=== PATIENT | female | born 1955 | race Hispanic/Latino ===

== ENCOUNTER 2018-05-01 13:20 | Emergency (ER) | payer BC ==
--- NOTE | 2018-05-01 14:35 | RAD REPORT ---
EXAM DESCRIPTION: CT - Head Brain Wo Cont - 05/01/2018 2:25 pm CLINICAL HISTORY: HEADACHE COMPARISON: Head Brain Wo Cont dated 09/08/2016 TECHNIQUE: All CT scans are performed using dose optimization technique as appropriate and may inclu de automated exposure control or mA/KV adjustment according to patient size. FINDINGS: No intracranial hemorrhage, hydrocephalus or extra-axial fluid collection.No areas of brai n edema or evidence of midline shift. Extensive fluid with air-fluid level seen in the paranasal sinuses suggesting sinusitis. The calvariu m is intact. IMPRESSION: No acute intracranial abnormality. Multifocal air-fluid levels in the paranasal sinuses raise suspicion for acute sinusitis.
[2018-05-01] MEDS ORDERED: PROMETHAZINE 25 MG/ML VIAL ONE (14:59)
[2018-05-01] MEDS ORDERED: FENTANYL CITR 100 MCG/2 ML ONE (15:00)
[2018-05-01] MEDS ORDERED: NA CHLORIDE 0.9% 1,000 ML ONE (15:00)
[2018-05-01 15:36] LABS: Absolute Lymphocytes (CBC) 2.7 K/uL (0.7-4.9); Absolute Monocytes 0.8 K/uL (0.1-1.3); Absolute Neutrophil 6.1 K/uL (1.8-8.0); Basophils % 0.4 % (0-1.3); Eosinophils % 0.2 % (0-4.4); Hematocrit 35.8 % (36.0-45.0); Lymphocytes % 27.9 % (15.3-44.8); MPV 9.3 fL (7.6-11.3); Monocytes % 8.5 % (3.3-12.3); RBC Red Blood Cell Count 4.02 M/uL (3.86-4.86)
[2018-05-01 15:49] LABS: BUN Blood Urea Nitrogen 16 mg/dL (7-18); Bicarbonate 24 mmol/L (21-32); Glucose Level 137 mg/dL (74-106); Potassium 3.5 mmol/L (3.5-5.1); Sodium Level 139 mmol/L (136-145)
--- NOTE | 2018-05-01 16:19 | ER ---
Nurse's Notes [facility] Name: Rosey Baum Age: 62 yrs Sex: Female : 1955 Arrival Date: 05/01/2018 Time: 13:22 Bed 15 Private MD: Diagnosis: Acute sinusitis;Headache Presentation: 05/01 13:32 Presenting complaint: Patient states: frontal headache radiating to back of head that aa5 began approximately 1 week ago. Pt also reports nausea. Pt reports being seen by her PCP diagnosed with sinusitis and prescribed Levaquin 500 mg yesterday. Pt denies cough. Transition of care: patient was not received from another setting of care. Onset of symptoms was 2018. Risk Assessment: Do you want to hurt yourself or someone else? Patient reports no desire to harm self or others. Initial Sepsis Screen: Does the patient meet any 2 criteria? No. Patient's initial sepsis screen is negative. Does the patient have a suspected source of infection? No. Patient's initial sepsis screen is negative. Care prior to arrival: None. 13:32 Method Of Arrival: Ambulatory aa5 13:32 Acuity: JOVANY 3 aa5 Historical: - Allergies: 13:36 PENICILLINS; aa5 - Home Meds: 13:36 ozempic (semaglutide) [Active]; Farxiga 10 mg oral tab 1 tab once daily [Active]; aa5 duloxetine 60 mg oral cpDR once daily [Active]; - PMHx: 13:36 Diabetes - NIDDM; TIA; aa5 - PSHx: 13:36 ; Cholecystectomy; Appendectomy; Hysterectomy; aa5 - Immunization history:: Adult Immunizations unknown. - Social history:: Smoking status: Patient/guardian denies using tobacco. - Ebola Screening: : No symptoms or risks identified at this time. Screenin:30 Abuse screen: Denies threats or abuse. Denies injuries from another. Nutritional jl7 screening: No deficits noted. Tuberculosis screening: No symptoms or risk factors identified. Fall Risk IV access (20 points). Total Biswas Fall Scale indicates No Risk (0-24 pts). Assessment: 14:30 General: Appears in no apparent distress. uncomfortable, Behavior is cooperative, jl7 anxious, crying. Pain: Complains of pain in headache Pain currently is 10 out of 10 on a pain scale. Pain began 2-3 days ago. Is continuous, Aggravated by light. Neuro: Level of Consciousness is awake, alert, obeys commands, Oriented to person, place, time, situation. Cardiovascular: Patient's skin is warm and dry. Respiratory: Airway is patent Respiratory effort is even, unlabored, Respiratory pattern is regular, symmetrical. GI: Reports nausea. : No signs and/or symptoms were reported regarding the genitourinary system. EENT: No signs and/or symptoms were reported regarding the EENT system. Derm: Skin is pink, warm \T\ dry. Musculoskeletal: No signs and/or symptoms reported regarding the musculoskeletal system. 15:30 Reassessment: Patient appears in no apparent distress at this time. Patient and/or jl7 family updated on plan of care and expected duration. Pain level reassessed. Patient is alert, oriented x 3, equal unlabored respirations, skin warm/dry/pink. Patient states symptoms have improved. Vital Signs: 13:36 BP 94 / 61; Pulse 91; Resp 18 S; Temp 97.7(TE); Pulse Ox 99% on R/A; Pain 10/10; aa5 15:00 BP 121 / 70; Pulse 80; Resp 16; Pulse Ox 100% ; Pain 10/10; jl7 16:05 BP 125 / 57; Pulse 80; Resp 16 S; Pulse Ox 100% on R/A; jl7 16:45 BP 123 / 69; Pulse 80; Resp 16 S; Pulse Ox 100% on R/A; Pain 5/10; jl7 [place] Coma Score: 16:19 Eye Response: spontaneous(4). Verbal Response: oriented(5). Motor Response: obeys snw commands(6). Total: 15. ED Course: 13:22 Patient arrived in ED. mr 13:32 Arm band placed on. aa5 13:34 Triage completed. aa5 14:02 [facility]C [facility]. snw 14:02 Emory Blevins MD is Attending Physician. snw 14:13 Leni Byers RN is Primary Nurse. jl7 14:25 CT Head Brain wo Cont In Process Unspecified. EDMS 15:30 Patient has correct armband on for positive identification. Bed in low position. Call jl7 light in reach. Side rails up X 1. Pulse ox on. NIBP on. Warm blanket given. 15:30 Initial lab(s) drawn, by me, sent to lab. Inserted saline lock: 20 gauge in right jl7 antecubital area, using aseptic technique. Blood collected. 17:07 No provider procedures requiring assistance completed. IV discontinued, intact, jl7 bleeding controlled, No redness/swelling at site. Pressure dressing applied. Administered Medications: 15:00 Drug: NS 0.9% 1000 ml Route: IV; Rate: 1 bolus; Site: right antecubital; jl7 16:00 Follow up: IV Status: Completed infusion jl7 15:01 Drug: Phenergan 12.5 mg Route: IVP; Site: right antecubital; jl7 15:45 Follow up: Response: No adverse reaction; Nausea is decreased jl7 15:10 Drug: fentaNYL (PF) 25 mcg Route: IM; Site: right deltoid; jl7 15:45 Follow up: Response: No adverse reaction; Pain is decreased jl7 Outcome: 16:18 Discharge ordered by MD. ramires 17:07 Discharged to home ambulatory, with family. jl7 17:07 Condition: stable 17:07 Discharge instructions given to patient, family, Instructed on discharge instructions, follow up and referral plans. medication usage, Demonstrated understanding of instructions, follow-up care, medications, Prescriptions given X 3. 17:08 Patient left the ED. jl7 Signatures: Dispatcher [employer] EDMS Sonja Infante, [employer] INSTALLER-Leo Mary WallaceEliana RN RN aa5 Leni Byers RN RN jl7 Corrections: (The following items were deleted from the chart) 13:36 13:32 Presenting complaint: Patient states: frontal headache radiating to back of head aa5 that began approximately 1 week ago. Pt also reports nausea. Pt reports being seen by her PCP and prescribed Levaquin 500 mg yesterday. Pt denies cough. aa5
--- NOTE | 2018-05-01 16:19 | EDPHYS ---
Physician Documentation [facility] Name: Rosey Baum Age: 62 yrs Sex: Female : 1955 Arrival Date: 05/01/2018 Time: 13:22 Bed 15 Private MD: ED Physician Emory Blevins HPI: 05/01 15:52 This 62 yrs old Female presents to ER via Ambulatory with complaints of snw Headache. 15:52 The patient complains of pain to the forehead, right eye, right cheek, left cheek, left snw eye, left temporal area and right temporal area. The patient describes the headache as constant, a pressure, throbbing. Onset: The symptoms/episode began/occurred gradually, 3 day(s) ago, and became persistent. Associated signs and symptoms: Pertinent positives: malaise, nausea, Photophobia vomiting. Severity of symptoms: At its worst the pain was moderate, severe. Headache History: The patient has had previous headaches and this one is similar to previous episodes. The patient has experienced similar episodes in the past. The patient has been recently seen by a physician: the patient's primary care provider, with similar presenting complaints, was given a prescription for antibiotics, dx with Sinusitis. Historical: - Allergies: 13:36 PENICILLINS; aa5 - Home Meds: 13:36 ozempic (semaglutide) [Active]; Farxiga 10 mg oral tab 1 tab once daily [Active]; aa5 duloxetine 60 mg oral cpDR once daily [Active]; - PMHx: 13:36 Diabetes - NIDDM; TIA; aa5 - PSHx: 13:36 ; Cholecystectomy; Appendectomy; Hysterectomy; aa5 - Immunization history:: Adult Immunizations unknown. - Social history:: Smoking status: Patient/guardian denies using tobacco. - Ebola Screening: : No symptoms or risks identified at this time. ROS: 15:50 ENT: Negative for injury, pain, and discharge, Neck: Negative for injury, pain, and snw swelling, Cardiovascular: Negative for chest pain, palpitations, and edema, Respiratory: Negative for shortness of breath, cough, wheezing, and pleuritic chest pain, Abdomen/GI: Negative for abdominal pain, nausea, vomiting, diarrhea, and constipation, Back: Negative for injury and pain, : Negative for injury, bleeding, discharge, and swelling, MS/Extremity: Negative for injury and deformity, Skin: Negative for injury, rash, and discoloration. 15:50 Constitutional: Positive for body aches, malaise. 15:50 Eyes: Positive for photophobia. 15:50 Neuro: Positive for headache, of the forehead, right eye, right cheek, left cheek, left eye, left temporal area and right temporal area. Exam: 15:50 Head/Face: Normocephalic, atraumatic. Eyes: Pupils equal round and reactive to light, snw extra-ocular motions intact. Lids and lashes normal. Conjunctiva and sclera are non-icteric and not injected. Cornea within normal limits. Periorbital areas with no swelling, redness, or edema. ENT: Nares patent. No nasal discharge, no septal abnormalities noted. Tympanic membranes are normal and external auditory canals are clear. Oropharynx with no redness, swelling, or masses, exudates, or evidence of obstruction, uvula midline. Mucous membranes moist. Neck: Trachea midline, no thyromegaly or masses palpated, and no cervical lymphadenopathy. Supple, full range of motion without nuchal rigidity, or vertebral point tenderness. No Meningismus. Chest/axilla: Normal chest wall appearance and motion. Nontender with no deformity. No lesions are appreciated. Cardiovascular: Regular rate and rhythm with a normal S1 and S2. No gallops, murmurs, or rubs. Normal PMI, no JVD. No pulse deficits. Respiratory: Lungs have equal breath sounds bilaterally, clear to auscultation and percussion. No rales, rhonchi or wheezes noted. No increased work of breathing, no retractions or nasal flaring. Abdomen/GI: Soft, non-tender, with normal bowel sounds. No distension or tympany. No guarding or rebound. No evidence of tenderness throughout. Back: No spinal tenderness. No costovertebral tenderness. Full range of motion. Skin: Warm, dry with normal turgor. Normal color with no rashes, no lesions, and no evidence of cellulitis. MS/ Extremity: Pulses equal, no cyanosis. Neurovascular intact. Full, normal range of motion. Neuro: Awake and alert, GCS 15, oriented to person, place, time, and situation. Cranial nerves II-XII grossly intact. Motor strength 5/5 in all extremities. Sensory grossly intact. Cerebellar exam normal. Normal gait. 15:50 Constitutional: The patient appears alert, awake, anxious, restless, uncomfortable. Vital Signs: 13:36 BP 94 / 61; Pulse 91; Resp 18 S; Temp 97.7(TE); Pulse Ox 99% on R/A; Pain 10/10; aa5 15:00 BP 121 / 70; Pulse 80; Resp 16; Pulse Ox 100% ; Pain 10/10; jl7 16:05 BP 125 / 57; Pulse 80; Resp 16 S; Pulse Ox 100% on R/A; jl7 16:45 BP 123 / 69; Pulse 80; Resp 16 S; Pulse Ox 100% on R/A; Pain 5/10; jl7 [place] Coma Score: 16:19 Eye Response: spontaneous(4). Verbal Response: oriented(5). Motor Response: obeys snw commands(6). Total: 15. MDM: 14:14 Patient medically screened. snw 16:19 Data reviewed: vital signs, nurses notes. Data interpreted: Pulse oximetry: on room air snw is 100 %. Interpretation: normal. Counseling: I had a detailed discussion with the patient and/or guardian regarding: the historical points, exam findings, and any diagnostic results supporting the discharge/admit diagnosis, lab results, radiology results, the need for outpatient follow up, to return to the emergency department if symptoms worsen or persist or if there are any questions or concerns that arise at home. Response to treatment: the patient's symptoms have markedly improved after treatment. Special discussion: Based on the history and exam findings, there is no indication for further emergent testing or inpatient evaluation. I discussed with the patient/guardian the need to see the primary care provider for further evaluation of the symptoms. 05/01 14:34 Order name: CBC with Diff; Complete Time: 16:00 snw 05/01 14:34 Order name: Chem 7; Complete Time: 15:50 snw 05/01 13:37 Order name: CT Head Brain wo Cont; Complete Time: 14:37 aa5 05/01 14:34 Order name: Blood Culture* snw Administered Medications: 15:00 Drug: NS 0.9% 1000 ml Route: IV; Rate: 1 bolus; Site: right antecubital; jl7 16:00 Follow up: IV Status: Completed infusion jl7 15:01 Drug: Phenergan 12.5 mg Route: IVP; Site: right antecubital; jl7 15:45 Follow up: Response: No adverse reaction; Nausea is decreased jl7 15:10 Drug: fentaNYL (PF) 25 mcg Route: IM; Site: right deltoid; jl7 15:45 Follow up: Response: No adverse reaction; Pain is decreased jl7 Disposition: 18:19 Co-signature as Attending Physician, Emory Blevins MD. rn Disposition: 05/01/18 16:18 Discharged to Home. Impression: Acute sinusitis, Headache. - Condition is Stable. - Discharge Instructions: Sinusitis, Adult, Sinus Headache, [id number]. - Prescriptions for Fiorinal 50- 325-40 mg Oral Capsule - take 1 capsule by ORAL route every 4 hours As needed - not to exceed 6 capsules per day; 20 capsule. Zyrtec 10 mg Oral Tablet - take 1 tablet by ORAL route once daily As needed; 20 tablet. promethazine 25 mg Oral Tablet - take 1 tablet by ORAL route every 6 hours As needed; 20 tablet. - Work release form, Medication Reconciliation Form, Thank You Letter, Antibiotic Education, Prescription Opioid Use form. - Follow up: Private Physician; When: 2 - 3 days; Reason: Recheck today's complaints, Continuance of care, Re-evaluation by your physician. Follow up: Emergency Department; When: As needed; Reason: Worsening of condition. - Notes: please continue antibiotics as directed Signatures: Dispatcher [employer] EDKY Sonja Infante, SUPERANNUATION CLERK-C SUPERANNUATION CLERK-Csnw Emory Blevins MD MD rn Calderon, Audri, RN RN aa5 Leni Byers RN RN jl7 Corrections: (The following items were deleted from the chart) 17:08 16:18 05/01/2018 16:18 Discharged to Home. Impression: Acute sinusitis; Headache. jl7 Condition is Stable. Forms are Medication Reconciliation Form, Thank You Letter, Antibiotic Education, Prescription Opioid Use. Follow up: Private Physician; When: 2 - 3 days; Reason: Recheck today's complaints, Continuance of care, Re-evaluation by your physician. Follow up: Emergency Department; When: As needed; Reason: Worsening of condition. snw
== END 2018-05-01 17:08 | disposition home or self-care (01) ==
LOC: ER 13:20
DX: J01.90 Acute sinusitis, unspecified (principal); E11.9 Type 2 diabetes mellitus without complications; Z88.0 Allergy status to penicillin
CPT/HCPCS: 36415; 70450; 80048; 85025; 87040; 96361; 96372; 96374; 99284; J2550; J3010; J7030